=== PATIENT | male | born 1990 | race Caucasian/White ===

== ENCOUNTER 2018-04-15 14:40 | Outpatient (CLI) | payer OTHER | END 2018-04-15 14:45 | disposition home or self-care (01) | LOC: LAB 14:40 | DX: J18.0 Bronchopneumonia, unspecified organism (principal); J11.1 Influenza due to unidentified influenza virus with other respiratory manifestations; B99.8 Other infectious disease ==

== ENCOUNTER → 2018-05-10 11:07 | Outpatient (CLI) | payer OTHER | END | disposition home or self-care (01) | LOC: LAB 11:07 | DX: N20.0 Calculus of kidney (principal) ==